=== PATIENT | female | born 1960 | race Caucasian/White ===

== ENCOUNTER → 2017-01-05 | Outpatient (CLI) | payer OTHER | END | disposition home or self-care (01) | LOC: CFH 14:02 | PROVIDERS: ATTEND Family Medicine | DX: N63 Unspecified lump in breast (principal) | CPT/HCPCS: 76642; G0204 ==

== ENCOUNTER 2017-01-30 06:11 | Day surgery (SDC) | payer OTHER ==
[~2017-01-30] VITALS: Ht 177.8 cm; Wt 120.0 kg
[2017-01-30] MEDS ORDERED: HEPARIN 1,000 UNITS/ML, 10ML ONE (06:17)
[2017-01-30] MEDS ORDERED: EPINEPHRINE 1 MG/ML, 1ML ONE (06:18)
[2017-01-30] MEDS ORDERED: BUPIVACAINE/PF 0.5% ONE (06:18)
[2017-01-30] MEDS ORDERED: FENTANYL PF 100 MCG/2ML ONE ×2 (06:44)
[2017-01-30] MEDS ORDERED: LACTATED RINGERS 1,000 ML IV SCH (06:44)
[2017-01-30] MEDS ORDERED: MIDAZOLAM 1 MG/ML, 2ML ONE (06:44)
[2017-01-30] MEDS ORDERED: PROPOFOL 10 MG/ML, 20ML ONE (06:45)
[2017-01-30 06:46] VITALS: BP 126/80
[2017-01-30] MEDS ORDERED: SUCCINYLCHOLINE 20 MG/ML, 10ML ONE (06:47)
[2017-01-30] MEDS ORDERED: LIDOCAINE GEL 2%, 5ML ONE (06:47)
[2017-01-30] MEDS ORDERED: LEVO50TA5 PO (07:08)
[2017-01-30] MEDS ORDERED: DEXAMETHASONE 4 MG/ML, 1ML ONE (07:12)
[2017-01-30] MEDS ORDERED: FENTANYL PF 100 MCG/2ML IV PRN (07:30)
[2017-01-30] MEDS ORDERED: ACETAMINOPHEN 325 MG TABLET PO PRN (07:30)
[2017-01-30] MEDS ORDERED: PROMETHAZINE 25 MG/ML, 1ML IV PRN (07:30)
[2017-01-30] MEDS ORDERED: OXYcodone 5 MG/5 ML ORAL.SOL UDC PO PRN (07:30)
[2017-01-30] MEDS ORDERED: HYDROmorphone 1 MG/ML, 1ML IV PRN (07:30)
[2017-01-30] MEDS ORDERED: ONDANSETRON 2MG/ML, 2ML IVPush PRN (07:30)
[2017-01-30] MEDS ORDERED: HYDROcodone/APAP 7.5-325MG/15ML UDC PO PRN (07:30)
[2017-01-30] MEDS ORDERED: ACETAMINOPHEN 650 MG/20.3 ML UDC ONE (08:14)
== END 2017-01-30 09:40 ==
LOC: OUT 06:11
PROVIDERS: ATTEND Surgery
DX: Z45.2 Encounter for adjustment and management of vascular access device (principal); C50.912 Malignant neoplasm of unspecified site of left female breast; Z90.49 Acquired absence of other specified parts of digestive tract; Z86.39 Personal history of other endocrine, nutritional and metabolic disease
CPT/HCPCS: 36561; 77001; C1788; J0171; J0330; J1100; J1644; J2250; J2704; J3010; J3490; J7120

== ENCOUNTER → 2017-02-03 | Outpatient (CLI) | payer OTHER ==
[~2017-02-03] MED LIST: LEVO50TA5 PO; OMNIPAQUE 350 MG/ML, 100ML BOTTLE ONE
== END | disposition home or self-care (01) ==
LOC: CFH 13:14
PROVIDERS: ATTEND Specialist
DX: I35.1 Nonrheumatic aortic (valve) insufficiency (principal); I35.8 Other nonrheumatic aortic valve disorders; C50.411 Malignant neoplasm of upper-outer quadrant of right female breast; Z90.49 Acquired absence of other specified parts of digestive tract
CPT/HCPCS: 71260; 74160; 93306; Q9967

== ENCOUNTER → 2017-07-13 | Outpatient (CLI) | payer OTHER ==
[~2017-07-13] MED LIST changes: +BENADRYL PO; +BIOT25005 PO; +CHOL500045 PO; -OMNIPAQUE 350 MG/ML, 100ML BOTTLE ONE; +TRAS440V BC
== END ==
LOC: STAR 08:33
PROVIDERS: ATTEND Surgery
DX: Z02.9 Encounter for administrative examinations, unspecified (principal)

== ENCOUNTER → 2018-01-09 | Outpatient (CLI) | payer OTHER | END | disposition home or self-care (01) | LOC: CFH 09:52 | PROVIDERS: ATTEND Radiology Radiation Oncology | DX: Z12.31 Encounter for screening mammogram for malignant neoplasm of breast (principal); Z85.3 Personal history of malignant neoplasm of breast | CPT/HCPCS: 77063; 77067 ==

== ENCOUNTER → 2018-01-15 | Outpatient (CLI) | payer OTHER | END | disposition home or self-care (01) | LOC: ROC 07:28 | PROVIDERS: ATTEND Radiology Radiation Oncology | DX: C50.411 Malignant neoplasm of upper-outer quadrant of right female breast (principal) | CPT/HCPCS: 99212; G0463 ==

== ENCOUNTER → 2018-07-02 | Outpatient (CLI) | payer OTHER | END | disposition home or self-care (01) | LOC: ROC 07:50 | PROVIDERS: ATTEND Radiology Radiation Oncology | DX: Z08 Encounter for follow-up examination after completed treatment for malignant neoplasm (principal); C50.911 Malignant neoplasm of unspecified site of right female breast; Z78.0 Asymptomatic menopausal state | CPT/HCPCS: 99213; G0463 ==

== ENCOUNTER 2019-05-07 09:02 | Outpatient (CLI) | payer OTHER | END 2019-05-07 23:59 | disposition home or self-care (01) | LOC: RAD 09:02 | PROVIDERS: ATTEND Specialist | DX: C50.411 Malignant neoplasm of upper-outer quadrant of right female breast (principal) | CPT/HCPCS: 78306; A9503 ==

== ENCOUNTER → 2020-01-13 | Outpatient (CLI) | payer OTHER | END | disposition home or self-care (01) | LOC: CFH 08:18 | PROVIDERS: ATTEND Family Medicine | DX: C50.411 Malignant neoplasm of upper-outer quadrant of right female breast (principal); N64.89 Other specified disorders of breast | CPT/HCPCS: 76642; 77066; G0279 ==